=== PATIENT | female | born 1990 | race Caucasian/White ===

== ENCOUNTER 2021-09-22 12:29 | Emergency (ER) | payer OTHER ==
[2021-09-22 12:54] VITALS: RESP 18
[2021-09-22] MEDS ORDERED: LORazepam 1 MG TAB PO STA (13:16)
--- NOTE | 2021-09-22 13:28 | ED ---
General Adult HPI - General Chief complaint: Psychiatric Symptoms Stated complaint: Mental Health Time Seen by Provider: 09/22/21 13:01 Source: patient, family, RN notes reviewed, old records reviewed Mode of arrival: ambulatory Limitations: no limitations - History of Present Illness Initial comments: Patient is a 31-year-old female with past medical history remarkable for anxiety has no migraine medications presents with the department after being petitioned by her mother for her anxiety. Patient states "not understanding conversations, anxiety episodes, past episodes of hallucinating references. There is a police report indicating hallucinatory remarks, paranoia." She otherwise has no acute complaints at this time. States she has attempted to follow up with [facility] outpatient but has been unable to. Endorse's worsening stressors including her mother at home. Denies suicidal or homicidal ideations, attempts, plans. Denies visual or auditory hallucinations. No other acute complaints. Presents for psychiatric evaluation. - Related Data Home Medications Medication Instructions Recorded Confirmed No Known Home Medications 09/22/21 09/22/21 Allergies Allergy/AdvReac Type Severity Reaction Status Date / Time Penicillins Allergy Rash/Hives Verified 09/22/21 13:28 Review of Systems ROS Statement: Those systems with pertinent positive or pertinent negative responses have been documented in the HPI. Review of Systems: CONST: Denies fever EYES: Denies blurry vision ENT: Denies nasal congestion C/V: Denies Chest pain RESP: Denies shortness of breath GI: Denies abdominal pain : Denies dysuria SKIN: Denies rash. MSK: Denies joint pain. NEURO: Denies headache PSYCH: Denies suicidal and homicidal ideations/plans/attempts. Denies visual or auditory hallucinations. ROS Other: All systems not noted in ROS Statement are negative. Past Medical History Past Medical History: No Reported History History of Any Multi-Drug Resistant Organisms: None Reported Past Surgical History: No Surgical Hx Reported Past Psychological History: Anxiety, Depression Smoking Status: Never smoker Past Alcohol Use History: None Reported Past Drug Use History: Marijuana General Exam - General Exam Comments Initial Comments: General: Appears in no acute distress. HEAD: Normal with no signs of head trauma. EYES: PERRLA, EOMI, conjunctiva normal, no discharge. ENT: Hearing grossly intact, normal oropharynx. RESPIRATORY: Clear breath sounds bilaterally. No wheezes, rales, or rhonchi. C/V: Regular rate and rhythm. S1 and S2 auscultated, no edema, peripheral pulses 2+ and intact throughout ABD: Abd is soft, nontender, nondistended EXT: No obvious deformity. SKIN: No rashes or lesions observed on exposed skin. NEURO: Alert and oriented 4. Limitations: no limitations Course Vital Signs 09/22/21 12:49 Temperature 97.9 F Pulse Rate 103 H Respiratory 18 Rate Blood Pressure 118/81 O2 Sat by Pulse 98 Oximetry Medical Decision Making - Medical Decision Making Based on the patient's presentation and physical exam, I do believe she requires psychiatric evaluation. Patient was placed in green scrubs. Sitter was ordered. BAT was obtained and is 0. UDS is pending at this time. I do not believe that she requires further laboratory studies or imaging at this time. She'll be given Ativan for her anxiety by mouth. She was in agreement this plan. Vital signs were reviewed and are within normal limits. At this time patient is medically cleared for evaluation by psychiatry. Disposition is pending psychiatric evaluation.Patient was evaluated by EPS. She does endorse using drugs such as kratum at home. Recommended she stop this drug. EPS discuss the case with psychiatry who ultimately determined that the patient is cleared for discharge home with follow-up with psychiatry. Safety plan will be provided. UDS did finally return was positive for marijuana. I believe it is safer to be discharged home. Patient was discharged home in stable condition with a safety plan. - Lab Data Lab Results 09/22/21 Range/Units 13:32 Urine Opiates Screen Not Detected (NotDetected) Ur Oxycodone Screen Not Detected (NotDetected) Urine Methadone Screen Not Detected (NotDetected) Ur Propoxyphene Screen Not Detected (NotDetected) Ur Barbiturates Screen Not Detected (NotDetected) U Tricyclic Antidepress Not Detected (NotDetected) Ur Phencyclidine Scrn Not Detected (NotDetected) Ur Amphetamines Screen Not Detected (NotDetected) U Methamphetamines Scrn Not Detected (NotDetected) U Benzodiazepines Scrn Not Detected (NotDetected) Urine Cocaine Screen Not Detected (NotDetected) U Marijuana (THC) Screen Detected H (NotDetected) Disposition Clinical Impression: Encounter for psychiatric assessment Disposition: HOME SELF-CARE Condition: Stable Additional Instructions: See safety plan for further details. Is patient prescribed a controlled substance at d/c from ED?: No Referrals: None,Stated [Primary Care Provider] - 1-2 days Time of Disposition: 14:54
[2021-09-22 14:34] LABS: Amphetamine Screen,Urine Not Detected (NotDetected); Barbiturate Screen,Urine Not Detected (NotDetected); Benzodiazepines Screen,Urine Not Detected (NotDetected); Cocaine Screen,Urine Not Detected (NotDetected); Methadone Screen, Urine Not Detected (NotDetected); Opiate Screen,Urine Not Detected (NotDetected); Oxycodone Screen, Urine Not Detected (NotDetected); Phencyclidine Screen,Urine Not Detected (NotDetected); Tricyclic Antidepressant,Urine Not Detected (NotDetected); Urn Cannabinoid Scrn Detected (NotDetected)
[2021-09-22 15:11] VITALS: BP 116/78; PULSE 96; TEMP 98.2
== END 2021-09-22 15:11 | disposition home or self-care (01) ==
LOC: EC 12:29
DX: Z04.6 Encounter for general psychiatric examination, requested by authority (principal); F32.A Depression, unspecified; F41.9 Anxiety disorder, unspecified; F12.90 Cannabis use, unspecified, uncomplicated; Z88.0 Allergy status to penicillin
CPT/HCPCS: 80306; 82075; 99283